=== PATIENT | female | born 1970 | race Asian ===

== ENCOUNTER 2017-09-11 15:34 | Inpatient (IN) | payer MEDICAID ==
[~2017-09-11] VITALS: Ht 160 cm; Wt 79.4 kg
[2017-09-11 15:51] VITALS: BP_SYST 160
[2017-09-11 16:13] LABS: BASOPHILS # (AUTO) 0.1 K/uL (0.0-0.2); BASOPHILS % (AUTO) 0.9 % (0.0-2.0); EOSINOPHILS # (AUTO) 0.1 K/uL (0.0-0.4); EOSINOPHILS % (AUTO) 0.8 % (0.0-4.0); HEMATOCRIT 45.3 % (36-48); HEMOGLOBIN 15.5 g/dL (12.0-16.0); LYMPHOCYTES # (AUTO) 2.4 K/uL (1.0-5.5); LYMPHOCYTES % (AUTO) 31.4 % (20.5-51.5); MEAN CORPUSCULAR HEMOGLOBIN 31 pg (27-31); MEAN CORPUSCULAR HGB CONC 34 % (32-36); MEAN CORPUSCULAR VOLUME 91 fL (79.0-98.0); MONOCYTES # (AUTO) 0.5 K/uL (0.0-1.0); MONOCYTES % (AUTO) 7.2 % (1.7-9.3); NEUTROPHILS # (AUTO) 4.4 K/uL (1.8-7.7); NEUTROPHILS % (AUTO) 59.7 % (40.0-70.0); PLATELET COUNT (AUTO) 322 K/uL (130-430); WHITE BLOOD COUNT (AUTO) 7.5 K/uL (4.8-10.8)
[2017-09-11 16:32] LABS: CALCIUM 8.8 mg/dL (8.4-11.0); CREATININE 0.65 mg/dL (0.55-1.30); POTASSIUM 3.4 mmol/L (3.5-5.1)
[2017-09-11 16:40] LABS: ALBUMIN 4.1 g/dL (3.4-4.8); TOTAL BILIRUBIN 0.2 mg/dL (0.0-1.0)
[2017-09-11 16:53] LABS: INR 0.9 (0.8-1.2); PROTHROMBIN TIME 9.3 SECS (9.5-12.5)
[2017-09-11] MEDS ORDERED: POTASSIUM CHLORIDE 10 MEQ TAB.PRT.SR PO ONE (17:15)
[2017-09-11] MEDS ORDERED: ASPIRIN 81 MG TAB.CHEW PO ONE (17:15)
[2017-09-11] MEDS ORDERED: LORazepam 2 MG/ML VIAL IVP ONE (18:15)
[2017-09-11] MEDS ORDERED: LEVALBUTEROL HCL 0.63 MG/3 ML VIAL.NEB INH ONE (18:15)
[2017-09-11] MEDS ORDERED: ONDANSETRON HCL 4 MG/2 ML VIAL IVP ONE (18:15)
[2017-09-11 18:30] LABS: CHOLESTEROL 192 mg/dL (<200); HDL CHOLESTEROL 51 mg/dL (>55); LDL CHOLESTEROL 113 mg/dL (<100); TRIGLYCERIDES 81 mg/dL (30-150)
[2017-09-11 19:29] VITALS: BP_SYST 142
[2017-09-11] MEDS ORDERED: GLUXR500 PO (20:18)
[2017-09-11] MEDS ORDERED: TEMA15CA51 PO (20:18)
[2017-09-11] MEDS ORDERED: CLON1TAB4 PO (20:18)
[2017-09-11] MEDS ORDERED: TRAZ-123 PO (20:18)
[2017-09-11] MEDS ORDERED: LITH300C2 PO (20:18)
[2017-09-11] MEDS ORDERED: VENL75CA PO (20:18)
[2017-09-11] MEDS ORDERED: IPRATROPIUM/ALBUTEROL SULFATE 3 ML AMPUL.NEB INH PRN (20:30)
[2017-09-11 20:58] VITALS: BP_SYST 142
[2017-09-11] MEDS ORDERED: DIPHENHYDRAMINE HCL 50 MG CAPSULE PO PRN (21:00)
[2017-09-11] MEDS ORDERED: TEMAZEPAM 15 MG CAPSULE PO SCH (21:30)
[2017-09-11] MEDS ORDERED: DEXTROSE 50% JECT 50 ML DISP.SYRIN IVP PRN (21:30)
[2017-09-11] MEDS: INSULIN REGULAR, HUMAN 100 UNITS/ML, 10 ML VIAL (novoLIN R) SUBCUT PRN (23:05)
[2017-09-12] VITALS (7 sets, daily range): BP systolic 121–141
[2017-09-12] MEDS: INSULIN REGULAR, HUMAN 100 UNITS/ML, 10 ML VIAL (novoLIN R) SUBCUT PRN ×2 (06:02→23:50)
[2017-09-12] MEDS ORDERED: Effexor 37.5 MG TAB PO SCH (09:00)
[2017-09-12] MEDS ORDERED: LITHIUM CARBONATE 300 MG TABLET.SA PO SCH (09:00)
[2017-09-12] MEDS: ASPIRIN 81 MG TAB.CHEW PO SCH (09:27)
[2017-09-12] MEDS ORDERED: ONDANSETRON HCL 4 MG/2 ML VIAL IVP PRN (14:45)
[2017-09-12] MEDS ORDERED: traZODone HCL 50 MG TABLET (DESYREL) PO SCH (21:00)
[2017-09-12] MEDS ORDERED: TEMAZEPAM 15 MG CAPSULE PO SCH (21:00)
[2017-09-13] MEDS: INSULIN REGULAR, HUMAN 100 UNITS/ML, 10 ML VIAL (novoLIN R) SUBCUT PRN ×2 (06:28→12:09)
[2017-09-13 08:28] VITALS: BP_SYST 139
[2017-09-13] MEDS: ASPIRIN 81 MG TAB.CHEW PO SCH (08:58)
[2017-09-13 11:28] VITALS: BP_SYST 135
[2017-09-13 14:01] VITALS: BP_SYST 135
== END 2017-09-13 14:40 | disposition home or self-care (01) | DRG 756 ==
LOC: SED 15:34 → STU 18:25
PROVIDERS: ADMIT Internal Medicine Hospice and Palliative Medicine; ATTEND Internal Medicine Hospice and Palliative Medicine
DX: F41.9 Anxiety disorder, unspecified (principal); I10 Essential (primary) hypertension; E11.9 Type 2 diabetes mellitus without complications; F31.9 Bipolar disorder, unspecified; G47.00 Insomnia, unspecified; F51.04 Psychophysiologic insomnia; Z88.8 Allergy status to other drugs, medicaments and biological substances; Z87.891 Personal history of nicotine dependence
CPT/HCPCS: 36415; 71045; 80053; 80061; 80178-TC; 82550-TC; 82607; 82962; 83880; 84443-TC; 84484; 84703; 85025; 85379; 85610-TC; 85730-TC; 93005; 93306; 94640; 94760; 99285; J2060; J2405; J7614; J7620; Q0163